=== PATIENT | female | born 1995 | race Caucasian/White ===

== ENCOUNTER → 2023-06-06 16:24 | Outpatient (REF) | payer OTHER, SELFPAY | LOC: RAD 16:24 | PROVIDERS: ATTENDING PHYSICIAN Student in an Organized Health Care Education/Training Program | DX: M25.512 Pain in left shoulder (principal) | CPT/HCPCS: 73030 ==

== ENCOUNTER → 2023-06-08 12:31 | Outpatient (REF) | payer OTHER, SELFPAY | LOC: RAD 12:31 | PROVIDERS: ATTENDING PHYSICIAN Family Medicine | DX: T14.8XXA Other injury of unspecified body region, initial encounter (principal) | CPT/HCPCS: 73110; 73130 ==

== ENCOUNTER 2023-06-08 13:19 | Emergency (ER) | payer OTHER, SELFPAY ==
[2023-06-08 13:20] VITALS: BP 139/93
[2023-06-08 13:23] LABS: Glucose - Point of Care 83 mg/dl (70-99)
[2023-06-08 15:25] VITALS: BP 117/55
[2023-06-08] MEDS: CLEOCIN 450 MG PO (15:40)
[2023-06-08] MEDS: MOTRIN 400 MG PO (15:40)
--- NOTE | 2023-06-08 17:55 | ED.GENMED ---
History of Present Illness
General
Chief Complaint: Fainting/Passed Out
Source: patient and family (Father)
Exam Limitations: none
Time Seen by Provider: 06/08/23 13:20
Nursing documentation reviewed up to this point in time: agreed with
Travel History
Have you had any contact with someone who has COVID-19?: No
Do you have any symptoms of coronavirus? Fever > 100 degrees, chills, cough, shortness of breath, sore throat, loss of taste or smell, muscle aches, or headache?: No
History of Present Illness
History of Present Illness:
27-year-old female with a past medical history of insulin-dependent diabetes presents to the emergency room with her father for evaluation after syncopal event; she really is requesting evaluation for right hand pain primarily. Patient reports that
she injured her right hand yesterday by slamming it in a car door. It has been swollen, bruised and tender since. She spoke with her primary physician who ordered her for an outpatient x-ray of the wrist and hand. She was here today for her x-ray
and while she was in the lobby she began to feel like her blood sugar was dropping low and she had a brief syncopal event. She did not fall or injure herself she says. Her father got her a soda and candy bar which she ate with resolution of her
symptoms. Accu-Chek after eating these things showed a glucose of 83. Patient admits that she used her mealtime insulin at around 11:30 AM today but that the x-ray took longer than expected and she did not get a chance to eat afterwards. She
denies any chest pain, shortness of breath, palpitations, headache, flank pain, abdominal pain, vaginal bleeding or any other complaints.
Past History
Past History
ED Past Medical History: IDDM, Psychiatric (Depression; tricyclic overdose September 2016), Other (Migraine headaches) and Other (Ovarian cysts, kidney stones)
ED Past Surgical History: None
Social History
Tobacco: Non-smoker
Alcohol: None
Personal: Single
Living: with family
Employment: Student
Family History
Family History: Other (Noncontributory)
Review of Systems
Review of Systems
All Other Systems: ROS reviewed and negative except as documented in HPI and ROS
Constitutional: Denies fever or chills
EENT: Denies sore throat
Respiratory: Denies cough or trouble breathing
Cardiac: Reports syncope; Denies chest pain, diaphoresis or palpitations
ABD/GI: Denies abdominal pain, nausea or vomiting
: Denies flank pain or bleeding
Musculoskeletal: Reports muscle pain (Right hand pain); Denies neck pain or back pain
Neurological: Denies dizzy, headache, weakness or numbness
Phy Exam
Physical Exam
Physical Exam:
General: Awake, alert, oriented x3; no acute distress
Head: Normocephalic, atraumatic
Eyes: Conjunctiva normal, EOMI, pupils equal round reactive to light bilaterally
Throat: Airway intact, handling secretions
Neck: Trachea midline, supple without meningismus
Lungs: Clear to auscultation bilaterally, no wheezing, rales, rhonchi
Heart: Regular rate and rhythm, no murmurs, gallops, or rubs�triage tachycardia resolved by my assessment
Abd: Soft, non distended, nontender
Neuro: Cranial nerves grossly intact, speech fluid, no gross motor or sensory deficits
Skin: no rash
Extremities: Patient has bruising/erythema of essentially the entire right thumb and thenar eminence as well as the dorsum of the hand along the first and second metatarsals; she has swelling in this area, tenderness to the touch; minor abrasion on
the dorsum of the thumb; she is able to make a fist and fully extend her fingers although she does have significant pain with making a fist; rest of extremities atraumatic
Scores
Heart Failure Risk
Heart Failure Risk Score: Not Applicable
Heart Score for Chest Pain Patients
STEMI patient?: Not applicable
Withdrawal Assessment of Alcohol
Withdrawal Assessment Completed?: Not applicable
Course
Orders/Labs/Results
Orders:
Orders
06/08/23 13:26
Electrocardiogram (*1) Urgent
Reason for Study: Chest Pain
EKG- Treatment ONCE
06/08/23 14:33
Clindamycin HCl [Cleocin] 450 mg PO NOW STA
06/08/23 14:37
Splints/Slings/Crut- Treatment ONCE
06/08/23 14:43
Ibuprofen [Motrin] 400 mg PO NOW STA
Vital Signs
Initial and Last Documented VS:
Initial Vital Signs
Temp Pulse Resp BP Pulse Ox
36.9 C 104 20 139/93 99
06/08/23 13:20 06/08/23 13:20 06/08/23 13:20 06/08/23 13:20 06/08/23 13:20
Last Documented Vital Signs
Temp Pulse Resp BP Pulse Ox
36.9 C 87 14 117/55 100
06/08/23 13:20 06/08/23 15:25 06/08/23 15:25 06/08/23 15:25 06/08/23 15:25
MDM/Problems Addressed
Differential Diagnosis Includes:
Syncope: Hypoglycemia, dysrhythmia, dehydration, orthostatic hypotension
Hand pain: Fracture, contusion, cellulitis
MDM/Problems Addressed:
27-year-old female with history of insulin-dependent diabetes presents after syncopal episode related to low blood sugar�took her insulin and did not eat because she was getting x-ray of her hand, felt her sugar dropped low and passed out. Drank a
soda and ate a candy bar with improvement. She feels fine now. She still has pain in her right hand. I reviewed outpatient x-rays which showed no fracture. She has significant pain and swelling, tenderness. Suspect likely bruising/contusion and
can likely be treated conservatively with splint for support, ice, rest, elevation. She does have an abrasion and the skin is warm and slightly erythematous and with her history of diabetes cellulitis a consideration although somewhat less likely
given the timeline of symptoms. I did cover with antibiotics in an abundance of caution. I discussed with hand surgery and they will follow-up with patient in the office. Patient very comfortable with this plan. Spoke about return precautions
all questions answered.
Chronic conditions affecting care:
Insulin-dependent diabetes
*Radiology
Radiology exam reviewed: preliminary read by ED provider and radiology read reviewed
*Pulse Oximetry
Patient hypoxic: no
*EKG
Interpreted by ED Provider?: Yes
Heart Rate: 90
Rate: normal
Rhythm: sinus
[place]: normal axis
Interval: normal interval
QRS Pattern: normal QRS
Ischemia: no ischemia
*Critical Care Note
Total Time (30-74mins, 75-104mins- exclusive of procedures): Not Applicable
Data Reviewed
Source: patient and family (Father)
ED Attending Note
-
Portions of this chart may have been created with voice recognition software.� Occasional wrong word or��sound alike� substitutions may have occurred due to the inherent limitations of voice recognition software.
Discharge Plan
Departure
Patient Disposition: Home (Routine Discharge)
Date of Disposition: 06/08/23
Time of Disposition: 14:37
Patient with high blood pressure during this ER visit?: No
Discharge Problem:
Hand pain, right, Hypoglycemia
Instructions: Contusion (DC), Cellulitis (Skin Infection), Adult (DC), Low Blood Sugar, Adult ED
Prescriptions:
New
clindamycin HCl 150 mg capsule
450 mg PO TID 7 Days Qty: 63 0RF
No Action
insulin lispro [Humalog U-100 Insulin] 100 UNIT/ML solution
0 unit SQ AC
Patient Comments:
sliding scale WITH MEALS
insulin glargine [Lantus Solostar U-100 Insulin] 300 UNITS/3 ML insulin pen
16 units SC HS
norethindrone ac-eth estradiol [04/16 (21)] 1 TAB tablet
1 tab PO HS
acetaminophen 325 MG tablet
650 mg PO Q6HPRN PRN (Reason: mild pain/ fever>100.5F) 0RF
citalopram 40 mg Tablet
40 mg PO HS
Xolair 75 mg/0.5 mL Syringe
150 mg SC Q4W
Patient Comments:
NOT POSITIVE ON DOSING
acetaminophen-codeine [acetaminophen-codeine] 300-30 mg tablet
1 - 2 tab PO Q4HPRN PRN (Reason: Mod-severe pain) Qty: 30 0RF
cefuroxime axetil [cefuroxime axetil] 500 mg tablet
500 mg PO BID 7 Days Qty: 14 0RF
Referrals:
Charity Duarte PA-C [Family Provider] -
Stephane España MD [Active] - Call in 1-3 days for appt
Activity Restrictions/Additional Instructions:
Thank you for visiting the Emergency Department at [facility].
1. Please schedule a follow up appointment as directed. Call first thing tomorrow morning to make an appointment.
2. If indicated, please take your medications as instructed and indicated on discharge paperwork.
3. If any of your symptoms do not improve, or persist, or become more severe within 6-12 hours, please return to the emergency department for further care.
4. Please return to the emergency department if you develop a headache, neck pain/stiffness, fever greater than 100.4F, chest pain, shortness of breath, persistent nausea, vomiting, slurred speech, difficulty walking, numbness/tingling, weakness,
signs of infection or any other symptoms that are worrisome to you.
Please call [phone] if you have any questions.
Interventions
Interventions:
*Risk Screen - Suicide Last Done: 06/08/23 13:20
*General Assessment Last Done: 06/08/23 13:20
*Neglect/Abuse Screening Last Done: 06/08/23 13:20
ED- Fall Risk Assessment Last Done: 06/08/23 15:25
*Nursing Disposition Last Done: 06/08/23 15:44
ED- Cardiac Assessment Last Done: 06/08/23 15:25
ED- Neurological Assessment Last Done: 06/08/23 15:25
Discharge Date and Time
Discharge Date/Time: 06/08/23 15:45
== END 2023-06-08 15:45 | disposition home or self-care (01) ==
LOC: EMR 13:19
PROVIDERS: EMERGENCY PHYSICIAN Emergency Medicine; FAMILY PHYSICIAN Student in an Organized Health Care Education/Training Program
DX: M79.641 Pain in right hand (principal); W23.0XXA Caught, crushed, jammed, or pinched between moving objects, initial encounter; E11.649 Type 2 diabetes mellitus with hypoglycemia without coma; Z79.4 Long term (current) use of insulin
CPT/HCPCS: 99283; 29125; 82962; 93005

== ENCOUNTER 2024-01-06 16:54 | Emergency (ER) | payer OTHER, SELFPAY ==
[2024-01-06 17:05] VITALS: BP 125/84
--- NOTE | 2024-01-06 17:12 | ED.GENMED ---
ED Provider Triage
<Juan C Gabriel PA-C - Last Filed: 01/06/24 17:14>
-
Patient seen by provider in Triage?: Seen in Triage
Attestation: A medical screening examination has been initiated by a qualified medical provider. Based on the assessment performed at this time, it has been determined that an emergent medical condition may exist and the patient has been informed
that further medical evaluation and possible additional diagnostic testing may be needed.
HPI: 28-year-old female presenting to the emergency department at request of primary care provider for right-sided abdominal pain. Patient states symptoms started few days ago and gradually worsening. Has had a fever with this. She does note
associated nausea and vomiting. Patient stated she was having pain in the right lower quadrant but during the exam with her primary she was having more pain in the right upper part of her abdomen. On my exam patient's pain was more located within
the right upper quadrant. We ultimately decided to check labs and based off the lab work order imaging off of that which patient feels comfortable with.
GENERAL: Alert , in no apparent distress
EYE: No visual abnormalities.
NECK: Trachea midline
ENT: No visible abnormalities.
LUNGS: No acute respiratory distress
NEUROLOGICAL: Alert and oriented
ABDOMEN: Tenderness to the right upper quadrant
SKIN: Skin intact. No visible changes.
MUSCULOSKELETAL: Moving extremities normally
PSYCH: Normal and appropriate interaction.
This is a medical evaluation conducted in person to initiate diagnostic evaluation and provide initial therapeutics. Please see further documentation by the treating clinician.
History of Present Illness
<Juan C Gabriel PA-C - Last Filed: 01/06/24 17:14>
General
Chief Complaint: Fever
Time Seen by Provider: 01/06/24 19:50
<Rafael Alves PA-C - Last Filed: 01/06/24 23:32>
History of Present Illness
History of Present Illness:
28-year-old female presents to the emergency department for evaluation of intermittent fever, right lower quadrant pain rating to the right back, and nausea/vomiting for the past 24 to 48 hours. Pain is subsided as of now. No diarrhea or dysuria.
No history of intra-abdominal surgery.
Past History
<Juan C Gabriel PA-C - Last Filed: 01/06/24 17:14>
Past History
ED Past Medical History: IDDM, Psychiatric (Depression; tricyclic overdose September 2016), Other (Migraine headaches) and Other (Ovarian cysts, kidney stones)
ED Past Surgical History: None
Social History
Tobacco: Non-smoker
Alcohol: None
Personal: Single
Living: with family
Employment: Student
Family History
Family History: Other (Noncontributory)
Review of Systems
<Rafael Alves PA-C - Last Filed: 01/06/24 23:32>
Review of Systems
Allergies reviewed?: Yes
All Other Systems: ROS reviewed and negative except as documented in HPI and ROS
Phy Exam
<Rafael Alves PA-C - Last Filed: 01/06/24 23:32>
Physical Exam
Physical Exam:
GEN: Well appearing, NAD, WDWN
HEENT: Oral mucosa moist, no scleral icterus
Cardiac: Regular rate
Lung: No respiratory distress, no tachypnea
Abdomen: Soft, nontender
MSK: No gross deformity or injuries
Skin: Good color, no pallor or jaundice, no rashes
Neuro: AO x3, moves all extremities freely
Psych: Calm, cooperative
Course
<Juan C Gabriel PA-C - Last Filed: 01/06/24 17:14>
Orders/Labs/Results
Orders:
Orders
01/06/24 17:12
Test Result ONCE
01/06/24 17:21
Complete Blood Count/With Diff Urgent
Comprehensive Metabolic Panel Urgent
HCG, Serum Qualitative Screen Urgent
Lipase Urgent
01/06/24 17:46
CT Abd/pel W Iv And Oral Contr Urgent
Comment:
Reason For Exam: right sided abd pain, fevers
Iohexol [Omnipaque] See Protocol PO NOW STA
01/06/24 20:38
Urinalysis Reflex To Culture Urgent
Date Specimen was Collected: 01/06/24
Time Specimen was Collected: 20:37
Abnormal Lab Results
01/06/24
17:21
MCHC 32.8 L g/dL
(33.0-37.0)
Glucose 58 L mg/dl
(70-99)
Total Bilirubin < 0.1 L mg/dl
(0.2-1.3)
01/06/24 17:21
01/06/24 17:21
Vital Signs
Initial and Last Documented VS:
Initial Vital Signs
Temp Pulse Resp BP Pulse Ox
98.4 F 95 16 125/84 97
01/06/24 17:05 01/06/24 17:05 01/06/24 17:05 01/06/24 17:05 01/06/24 17:05
Last Documented Vital Signs
Temp Pulse Resp BP Pulse Ox
98.3 F 83 16 117/77 100
01/06/24 18:53 01/06/24 18:53 01/06/24 18:53 01/06/24 18:53 01/06/24 18:53
<Rafael Alves PA-C - Last Filed: 01/06/24 23:32>
Orders/Labs/Results
Orders:
Orders
01/06/24 17:12
Test Result ONCE
01/06/24 17:21
Complete Blood Count/With Diff Urgent
Comprehensive Metabolic Panel Urgent
HCG, Serum Qualitative Screen Urgent
Lipase Urgent
01/06/24 17:46
CT Abd/pel W Iv And Oral Contr Urgent
Comment:
Reason For Exam: right sided abd pain, fevers
Iohexol [Omnipaque] See Protocol PO NOW STA
01/06/24 20:38
Urinalysis Reflex To Culture Urgent
Date Specimen was Collected: 01/06/24
Time Specimen was Collected: 20:37
Abnormal Lab Results
01/06/24
17:21
MCHC 32.8 L g/dL
(33.0-37.0)
Glucose 58 L mg/dl
(70-99)
Total Bilirubin < 0.1 L mg/dl
(0.2-1.3)
01/06/24 17:21
01/06/24 17:21
Vital Signs
Initial and Last Documented VS:
Initial Vital Signs
Temp Pulse Resp BP Pulse Ox
98.4 F 95 16 125/84 97
01/06/24 17:05 01/06/24 17:05 01/06/24 17:05 01/06/24 17:05 01/06/24 17:05
Last Documented Vital Signs
Temp Pulse Resp BP Pulse Ox
98.3 F 83 16 117/77 100
01/06/24 18:53 01/06/24 18:53 01/06/24 18:53 01/06/24 18:53 01/06/24 18:53
<Rafael Alves PA-C - Last Filed: 01/06/24 23:32>
MDM/Problems Addressed
MDM/Problems Addressed:
Workup was unremarkable, CT shows no evidence for acute pathology. Urinalysis is negative and labs are reassuring. Likely self-limited viral syndrome, discussed supportive care
<Rafael Alves PA-C - Last Filed: 01/06/24 23:32>
*Critical Care Note
Total Time (30-74mins, 75-104mins- exclusive of procedures): Not Applicable
ED Attending Note
<Juan C Gabriel PA-C - Last Filed: 01/06/24 17:14>
-
Portions of this chart may have been created with voice recognition software.� Occasional wrong word or��sound alike� substitutions may have occurred due to the inherent limitations of voice recognition software.
Discharge Plan
Departure
Patient Disposition: Home (Routine Discharge)
Date of Disposition: 01/06/24
Time of Disposition: 21:19
Patient with high blood pressure during this ER visit?: No
Discharge Problem:
Abdominal pain, Acute viral syndrome
Instructions: Viral Syndrome (DC)
Prescriptions:
No Action
insulin lispro [Humalog U-100 Insulin] 100 UNIT/ML solution
0 unit SQ AC
Patient Comments:
sliding scale WITH MEALS
insulin glargine [Lantus Solostar U-100 Insulin] 300 UNITS/3 ML insulin pen
16 units SC HS
norethindrone ac-eth estradiol [04/16 ()] 1 TAB tablet
1 tab PO HS
acetaminophen 325 MG tablet
650 mg PO Q6HPRN PRN (Reason: mild pain/ fever>100.5F) 0RF
citalopram 40 mg Tablet
40 mg PO HS
Xolair 75 mg/0.5 mL Syringe
150 mg SC Q4W
Patient Comments:
NOT POSITIVE ON DOSING
acetaminophen-codeine [acetaminophen-codeine] 300-30 mg tablet
1 - 2 tab PO Q4HPRN PRN (Reason: Mod-severe pain) Qty: 30 0RF
cefuroxime axetil [cefuroxime axetil] 500 mg tablet
500 mg PO BID 7 Days Qty: 14 0RF
clindamycin HCl 150 mg capsule
450 mg PO TID 7 Days Qty: 63 0RF
Referrals:
Garry Trammell, DO [Family Provider] -
Interventions
Interventions:
*Risk Screen - Suicide Last Done: 01/06/24 17:07
*General Assessment Last Done: 01/06/24 21:59
*Neglect/Abuse Screening Last Done: 01/06/24 17:07
ED- Fall Risk Assessment Last Done: 01/06/24 21:59
*ED COVID-19 Vaccine History Last Done: 01/06/24 17:08
*Nursing Disposition Last Done: 01/06/24 21:59
ED- Neurological Assessment Last Done: 01/06/24 18:54
ED-Skin Assessment Last Done: 01/06/24 18:54
Discharge Date and Time
Discharge Date/Time: 01/06/24 22:00
Print Language: ANGUILLAN
[2024-01-06 17:33] LABS: % Basophils 0.4 % (0-2); % Eosinophils 1.7 % (0-6); % Immature Granulocytes 0.1 % (0-0.5); % Lymphocytes 35.3 % (20.5-51.1); % Monocytes 6.8 % (1.7-9.3); % Neutrophils 55.7 % (42.2-75.2); Absolute Eosinophils 0.1 10^3/uL (0-0.7); Absolute Lymphocytes 2.5 10^3/uL (1.2-3.4); Absolute Monocytes 0.5 10^3/uL (0.1-0.6); Hemoglobin 12.8 g/dL (12.0-16.0); Mean Corp Hgb Conc. 32.8 g/dL (33.0-37.0); Mean Corpuscular Hgb 27.8 pg (27.0-31.0); Mean Corpuscular Volume 84.6 fL (81.0-99.0); Nucleated Red Blood Cells % 0 %; Platelet Count 264 10^3/uL (130-400); Red Blood Cell Count 4.61 10^6/uL (4.20-5.40); Red Cell Dist. Width 13.5 % (11.5-14.5); White Blood Cell Count 7.2 10^3/uL (4.8-10.8)
[2024-01-06 17:40] LABS: HCG, Serum Qualitative Screen Negative
[2024-01-06 17:45] LABS: ALT (SGPT) 15 U/L (0-35); AST (SGOT) 20 U/L (14-36); Albumin 4.4 g/dl (3.5-5.0); Alkaline Phosphatase 47 U/L (38-126); Blood Urea Nitrogen 9 mg/dl (7-17); Calcium 9.9 mg/dl (8.4-10.2); Carbon Dioxide 28 mmol/L (22-30); Chloride 102 mmol/L (98-107); Glucose 58 mg/dl (70-99); Lipase 70 U/L (23-300); Potassium 3.9 mmol/L (3.5-5.1); Sodium 141 mmol/L (135-145); Total Bilirubin < 0.1 mg/dl (0.2-1.3); Total Protein 7.1 g/dl (6.3-8.2); eGFR > 60.00
[2024-01-06] MEDS: OMNIPAQUE 50 ML PO (17:56)
[2024-01-06 18:53] VITALS: BP 117/77
[2024-01-06 20:49] LABS: Urine Albumin Negative (Neg - Trace); Urine Bilirubin Negative (Negative); Urine Character Clear (Clear); Urine Color Straw; Urine Glucose Negative (Negative); Urine Ketone Negative (Negative); Urine Leukocyte Negative (Negative); Urine Nitrite Negative (Negative); Urine Occult Blood Negative (Negative); Urine Urobilinogen Negative (Neg - 1+)
== END 2024-01-06 22:00 | disposition home or self-care (01) ==
LOC: EMR 16:54
PROVIDERS: Physician Assistant; Physician Assistant Medical; EMERGENCY PHYSICIAN Student in an Organized Health Care Education/Training Program; FAMILY PHYSICIAN Family Medicine
DX: B34.9 Viral infection, unspecified (principal); R10.31 Right lower quadrant pain; E11.9 Type 2 diabetes mellitus without complications; F32.A Depression, unspecified
CPT/HCPCS: 99284; 74177; 80053; 81003; 83690; 84703; 85025; Q9967

== ENCOUNTER 2024-04-10 13:15 | Emergency (ER) | payer OTHER, SELFPAY ==
[2024-04-10 13:21] VITALS: BP 130/90
--- NOTE | 2024-04-10 13:22 | ED.GENMED ---
ED Provider Triage
<Claudia Louise PA-C - Last Filed: 04/10/24 13:30>
-
Patient seen by provider in Triage?: Seen in Triage
pt is a 28 y/o F iddm, migraines
headache gradual since yesterday pressure all over
today when bending over, coughing/sneezing she feels sudden severe pain tofday starting aroud 1230 pm
vision changes are floaters/flashing lighths
but pain is posterior head and neck
no vomiting, fevr, chills, confusion, weakness
mom has h/o chiari maformation
possibel mild aneurysm
Well-appearing, stable vitals, intact nonfocal neuroexam
GCS 15
A medical screening examination has been initiated by a qualified medical provider. Based on the assessment performed at this time, it has been determined that an emergent medical condition may exist and the patient has been informed that further
medical evaluation and possible additional diagnostic testing may be needed.
HPI: This is a medical evaluation conducted in person to initiate diagnostic evaluation and provide initial therapeutics. Please see further documentation by the treating clinician.
GENERAL: Alert , in no apparent distress
ENT: No visible abnormalities
LUNGS: No acute respiratory distress
NEUROLOGICAL: Alert and oriented
SKIN: Skin intact. No visible changes.
MUSCULOSKELETAL: Moving extremities normally
PSYCH: Normal and appropriate interaction.
labs, cta, will need migraie meds
History of Present Illness
<Claudia Louise PA-C - Last Filed: 04/10/24 13:30>
General
Chief Complaint: Headache
Time Seen by Provider: 04/10/24 14:52
<Gold Grimaldo DO - Last Filed: 04/10/24 16:58>
History of Present Illness
History of Present Illness:
Agree with HPI
Past History
<Claudia Louise PA-C - Last Filed: 04/10/24 13:30>
Past History
ED Past Medical History: IDDM, Psychiatric (Depression; tricyclic overdose September 2016), Other (Migraine headaches) and Other (Ovarian cysts, kidney stones)
ED Past Surgical History: None
Social History
Tobacco: Non-smoker
Alcohol: None
Personal: Single
Living: with family
Employment: Student
Family History
Family History: Other (Noncontributory)
Phy Exam
<Gold Grimaldo DO - Last Filed: 04/10/24 16:58>
Physical Exam
Physical Exam:
Physical Exam
General: no apparent distress, not acutely ill
Neck: supple. no meningeal signs. normal posterior pharynx
Heart: s1/s2 regular rate and rhythm, no murmur. equal radial
pulses.
HEENT: Pupils equal round reactive to light, EOMI
Lungs: no acute respiratory distress. clear bilaterally
Abdomen: normal bowel sounds. not tender. no CVAT
Neuro: alert and oriented. no focal neurological deficits cranial nerves II through XII intact
Skin: no rash
Psychiatric: well kept. interactive and cooperative
Extremities: no edema. no calf tenderness. negative homans. good distal pulses
Course
<Claudia Louise PA-C - Last Filed: 04/10/24 13:30>
Orders/Labs/Results
Orders:
Orders
04/10/24 13:24
CT Head & Neck Angio W/wo IV Urgent
Comment:
Reason For Exam: migaine, severe with sudden vision changes/thunder
Test Result ONCE
04/10/24 13:32
COVID-19 Antigen Urgent
Source: Nasal Swab
Complete Blood Count/With Diff Urgent
Comprehensive Metabolic Panel Urgent
HCG, Serum Qualitative Screen Urgent
Influenza A+B Rapid Molecular Urgent
TIANA Source: Nasal Swab
Specimen Description:
04/10/24 15:05
Diphenhydramine [Benadryl] 25 mg IV NOW STA
Metoclopramide [Reglan] 10 mg IV NOW STA
Abnormal Lab Results
04/10/24
13:32
MCHC 32.7 L g/dL
(33.0-37.0)
Glucose 190 H mg/dl
(70-99)
04/10/24 13:32
04/10/24 13:32
Vital Signs
Initial and Last Documented VS:
Initial Vital Signs
Temp Pulse Resp BP Pulse Ox
97.6 F 91 18 130/90 93
04/10/24 13:21 04/10/24 13:21 04/10/24 13:21 04/10/24 13:21 04/10/24 13:21
Last Documented Vital Signs
Temp Pulse Resp BP Pulse Ox
97.6 F 78 18 115/74 99
04/10/24 13:21 04/10/24 16:08 04/10/24 16:08 04/10/24 16:08 04/10/24 16:08
<Gold Grimaldo, DO - Last Filed: 04/10/24 16:58>
Orders/Labs/Results
Orders:
Orders
04/10/24 13:24
CT Head & Neck Angio W/wo IV Urgent
Comment:
Reason For Exam: migaine, severe with sudden vision changes/thunder
Test Result ONCE
04/10/24 13:32
COVID-19 Antigen Urgent
Source: Nasal Swab
Complete Blood Count/With Diff Urgent
Comprehensive Metabolic Panel Urgent
HCG, Serum Qualitative Screen Urgent
Influenza A+B Rapid Molecular Urgent
TIANA Source: Nasal Swab
Specimen Description:
04/10/24 15:05
Diphenhydramine [Benadryl] 25 mg IV NOW STA
Metoclopramide [Reglan] 10 mg IV NOW STA
Abnormal Lab Results
04/10/24
13:32
MCHC 32.7 L g/dL
(33.0-37.0)
Glucose 190 H mg/dl
(70-99)
04/10/24 13:32
04/10/24 13:32
Vital Signs
Initial and Last Documented VS:
Initial Vital Signs
Temp Pulse Resp BP Pulse Ox
97.6 F 91 18 130/90 93
04/10/24 13:21 04/10/24 13:21 04/10/24 13:21 04/10/24 13:21 04/10/24 13:21
Last Documented Vital Signs
Temp Pulse Resp BP Pulse Ox
97.6 F 78 18 115/74 99
04/10/24 13:21 04/10/24 16:08 04/10/24 16:08 04/10/24 16:08 04/10/24 16:08
<Gold Grimaldo, - Last Filed: 04/10/24 16:58>
MDM/Problems Addressed
Differential Diagnosis Includes:
Vertebral/carotid artery dissection, migraine, intracranial hemorrhage
MDM/Problems Addressed:
28-year-old female with headache, likely migraine. Improved after Reglan and Benadryl. CTA head and neck no acute findings. Stable for discharge. Do not suspect vertebral artery or intracranial hemorrhage.
Chronic conditions affecting care: DM
<Gold Grimaldo, DO - Last Filed: 04/10/24 16:58>
*Radiology
Radiology exam reviewed: radiology read reviewed (CTA head and neck no acute findings)
*Pulse Oximetry
Patient hypoxic: no
*Critical Care Note
Total Time (30-74mins, 75-104mins- exclusive of procedures): Not Applicable
<Gold Grimaldo, DO - Last Filed: 04/10/24 16:58>
Patient Management
Social determinants of health affecting care: Living situation and Strong social support
Escalation/DeEscalation of care consider admission/obs:
Admit not indicated
ED Attending Note
<Claudia Louise PA-C - Last Filed: 04/10/24 13:30>
-
Portions of this chart may have been created with voice recognition software.� Occasional wrong word or��sound alike� substitutions may have occurred due to the inherent limitations of voice recognition software.
Discharge Plan
Departure
Patient Disposition: Home (Routine Discharge)
Date of Disposition: 04/10/24
Time of Disposition: 16:54
Patient with high blood pressure during this ER visit?: No
Condition: Good
Discharge Problem:
Headache
Instructions: Headache, Adult (DC)
Prescriptions:
No Action
insulin lispro [Humalog U-100 Insulin] 100 UNIT/ML solution
0 unit SQ AC
Patient Comments:
sliding scale WITH MEALS
insulin glargine [Lantus Solostar U-100 Insulin] 300 UNITS/3 ML insulin pen
16 units SC HS
norethindrone ac-eth estradiol [04/16 ()] 1 TAB tablet
1 tab PO HS
acetaminophen 325 MG tablet
650 mg PO Q6HPRN PRN (Reason: mild pain/ fever>100.5F) 0RF
citalopram 40 mg Tablet
40 mg PO HS
Xolair 75 mg/0.5 mL Syringe
150 mg SC Q4W
Patient Comments:
NOT POSITIVE ON DOSING
acetaminophen-codeine [acetaminophen-codeine] 300-30 mg tablet
1 - 2 tab PO Q4HPRN PRN (Reason: Mod-severe pain) Qty: 30 0RF
cefuroxime axetil [cefuroxime axetil] 500 mg tablet
500 mg PO BID 7 Days Qty: 14 0RF
clindamycin HCl 150 mg capsule
450 mg PO TID 7 Days Qty: 63 0RF
Referrals:
Charity Duarte PA-C [Family Provider] - Call in 1-3 days for appt
Interventions
Interventions:
*Risk Screen - Suicide Last Done: 04/10/24 13:21
*General Assessment Last Done: 04/10/24 13:21
*Neglect/Abuse Screening Last Done: 04/10/24 13:21
ED- Neurological Assessment Last Done: 04/10/24 13:53
Discharge Date and Time
Print Language: CYMRO
[2024-04-10 13:47] LABS: % Basophils 0.6 % (0-2); % Eosinophils 1.1 % (0-6); % Immature Granulocytes 0.2 % (0-0.5); % Lymphocytes 28.3 % (20.5-51.1); % Monocytes 5.4 % (1.7-9.3); % Neutrophils 64.4 % (42.2-75.2); Absolute Basophils 0.1 10^3/uL (0-0.2); Absolute Eosinophils 0.1 10^3/uL (0-0.7); Absolute Lymphocytes 2.5 10^3/uL (1.2-3.4); Absolute Monocytes 0.5 10^3/uL (0.1-0.6); Absolute Neutrophils 5.8 10^3/uL (1.4-6.5); Hematocrit 40.4 % (37.0-47.0); Hemoglobin 13.2 g/dL (12.0-16.0); Mean Corp Hgb Conc. 32.7 g/dL (33.0-37.0); Mean Corpuscular Volume 82.6 fL (81.0-99.0); Mean Platelet Volume 9.4 fL (7.4-10.4); Nucleated Red Blood Cells % 0 %; Platelet Count 321 10^3/uL (130-400); Red Blood Cell Count 4.89 10^6/uL (4.20-5.40); Red Cell Dist. Width 14.1 % (11.5-14.5)
[2024-04-10 13:53] LABS: HCG, Serum Qualitative Screen Negative
[2024-04-10 13:57] LABS: ALT (SGPT) 16 U/L (0-35); AST (SGOT) 20 U/L (14-36); Albumin 4.4 g/dl (3.5-5.0); Alkaline Phosphatase 77 U/L (38-126); Blood Urea Nitrogen 8 mg/dl (7-17); Calcium 9.5 mg/dl (8.4-10.2); Carbon Dioxide 29 mmol/L (22-30); Chloride 98 mmol/L (98-107); Glucose 190 mg/dl (70-99); Potassium 4.1 mmol/L (3.5-5.1); Sodium 136 mmol/L (135-145); Total Protein 7.1 g/dl (6.3-8.2); eGFR > 60.00
[2024-04-10 14:02] LABS: COVID-19 Antigen Negative (Negative)
[2024-04-10 14:34] LABS: Total Bilirubin 0.5 mg/dl (0.2-1.3)
[2024-04-10] MEDS: BENADRYL 25 MG IV (15:39)
[2024-04-10] MEDS: REGLAN 10 MG IV (15:39)
[2024-04-10 16:08] VITALS: BP 115/74
== END 2024-04-10 17:25 | disposition home or self-care (01) ==
LOC: EMR 13:15
PROVIDERS: Physician Assistant; EMERGENCY PHYSICIAN Emergency Medicine; FAMILY PHYSICIAN Student in an Organized Health Care Education/Training Program
DX: R51.9 Headache, unspecified (principal); E11.9 Type 2 diabetes mellitus without complications; F32.A Depression, unspecified; Z87.442 Personal history of urinary calculi
CPT/HCPCS: 99284; 96374; 96375; 70496; 70498; 80053; 84703; 85025; 87502; 87811; Q9967

== ENCOUNTER 2025-02-04 11:36 | Emergency (ER) | payer OTHER, SELFPAY ==
[2025-02-04 11:41] VITALS: BP 128/92
--- NOTE | 2025-02-04 12:19 | ED.GENMED ---
History of Present Illness
General
Chief Complaint: Fever
Time Seen by Provider: 02/04/25 12:13
History of Present Illness
History of Present Illness:
29-year-old female with history of type 1 diabetes presents to the emergency department for evaluation of fever associated with lower abdominal and low back pain beginning this morning. Pain is rated 7 out of 10. No nausea, vomiting, diarrhea,
lower urinary tract voiding symptoms or URI type symptoms. No ill contacts. No intra-abdominal surgical history. Currently on her menses. Glucose has been well-controlled recently per patient
Past History
Past History
ED Past Medical History: IDDM, Psychiatric (Depression; tricyclic overdose September 2016), Other (Migraine headaches) and Other (Ovarian cysts, kidney stones)
ED Past Surgical History: None
Social History
Tobacco: Non-smoker
Alcohol: None
Personal: Single
Living: with family
Employment: Student
Family History
Family History: Other (Noncontributory)
Review of Systems
Review of Systems
Allergies reviewed?: Yes
All Other Systems: ROS reviewed and negative except as documented in HPI and ROS
Phy Exam
Physical Exam
Physical Exam:
GEN: Well appearing, NAD, WDWN
HEENT: Oral mucosa moist, no scleral icterus
Cardiac: Regular rate and rhythm, no murmurs
Lung: No respiratory distress, no tachypnea
Abdomen: Soft, diffuse lower abdominal tenderness maximized in the suprapubic space, no rigidity or peritoneal signs
MSK: No gross deformity or injuries
Skin: Good color, no pallor or jaundice, no rashes
Neuro: AO x3, moves all extremities freely
Psych: Calm, cooperative
Course
Orders/Labs/Results
Orders:
Orders
02/04/25 12:18
Ketorolac [Toradol] 15 mg IV NOW STA
Test Result ONCE
02/04/25 12:28
Complete Blood Count/With Diff Urgent
Comprehensive Metabolic Panel Urgent
HCG, Serum Qualitative Screen Urgent
02/04/25 12:43
Urinalysis Reflex To Culture Urgent
Date Specimen was Collected: 02/04/25
Time Specimen was Collected: 12:36
02/04/25 14:17
US Abdomen - Appendix Only Urgent
Reason For Exam: pelvic pain, fever
US Pelvis W Transvag Combined Urgent
Reason For Exam: suprapubic pain, fever
Abnormal Lab Results
02/04/25
12:28
Sodium 133 L mmol/L
(135-145)
Glucose 229 H mg/dl
(70-99)
02/04/25 12:28
02/04/25 12:28
Vital Signs
Initial and Last Documented VS:
Initial Vital Signs
Temp Pulse Resp BP Pulse Ox
99.1 F 76 20 128/92 97
02/04/25 11:41 02/04/25 11:41 02/04/25 11:41 02/04/25 11:41 02/04/25 11:41
Last Documented Vital Signs
Temp Pulse Resp BP Pulse Ox
99.1 F 72 18 104/68 99
02/04/25 11:41 02/04/25 14:05 02/04/25 14:05 02/04/25 14:05 02/04/25 14:05
MDM/Problems Addressed
MDM/Problems Addressed:
Unclear etiology to patient's fever, certainly could be a self-limited viral syndrome. Most notably her labs are reassuring and her ultrasound shows no evidence for appendicitis or pelvic pathology. Urinalysis is bland. Discussed supportive care
*Pulse Oximetry
SaO2: 97
Oxygen Mode of Delivery: Room air
Patient hypoxic: no
*Critical Care Note
Total Time (30-74mins, 75-104mins- exclusive of procedures): Not Applicable
ED Attending Note
-
Portions of this chart may have been created with voice recognition software.� Occasional wrong word or��sound alike� substitutions may have occurred due to the inherent limitations of voice recognition software.
Discharge Plan
Departure
Patient Disposition: Home (Routine Discharge)
Date of Disposition: 02/04/25
Time of Disposition: 16:53
Patient with high blood pressure during this ER visit?: No
Discharge Problem:
Fever
Instructions: Fever, Adult (DC)
Prescriptions:
No Action
insulin lispro [Humalog U-100 Insulin] 100 UNIT/ML solution
0 unit SQ AC
Patient Comments:
sliding scale WITH MEALS
insulin glargine [Lantus Solostar U-100 Insulin] 300 UNITS/3 ML insulin pen
16 units SC HS
norethindrone ac-eth estradiol [June 04/16 ()] 1 TAB tablet
1 tab PO HS
acetaminophen 325 MG tablet
650 mg PO Q6HPRN PRN (Reason: mild pain/ fever>100.5F) 0RF
citalopram 40 mg Tablet
40 mg PO HS
Xolair 75 mg/0.5 mL Syringe
150 mg SC Q4W
Patient Comments:
NOT POSITIVE ON DOSING
acetaminophen-codeine [acetaminophen-codeine] 300-30 mg tablet
1 - 2 tab PO Q4HPRN PRN (Reason: Mod-severe pain) Qty: 30 0RF
cefuroxime axetil [cefuroxime axetil] 500 mg tablet
500 mg PO BID 7 Days Qty: 14 0RF
clindamycin HCl 150 mg capsule
450 mg PO TID 7 Days Qty: 63 0RF
doxycycline hyclate 100 mg capsule
100 mg PO BID Qty: 14 0RF
Interventions
Interventions:
*Risk Screen - Suicide Last Done: 02/04/25 11:41
*General Assessment Last Done: 02/04/25 11:41
*Neglect/Abuse Screening Last Done: 02/04/25 11:41
*ED- Fall Risk Assessment Last Done: 02/04/25 12:30
*ED COVID-19 Vaccine History Last Done: 02/04/25 12:30
*ED Influenza Vaccine History Last Done: 02/04/25 12:30
*Nursing Disposition Last Done: 02/04/25 12:30
ED- Neurological Assessment Last Done: 02/04/25 12:35
ED-Skin Assessment Last Done: 02/04/25 12:35
Discharge Date and Time
Discharge Date/Time: 02/04/25 17:08
Print Language: PUERTO RICAN
[2025-02-04] MEDS: TORADOL 15 MG IV (12:33)
[2025-02-04 12:47] LABS: Hematocrit 37.6 % (37.0-47.0); Hemoglobin 12.5 g/dL (12.0-16.0); Mean Corp Hgb Conc. 33.2 g/dL (33.0-37.0); Mean Corpuscular Volume 85.1 fL (81.0-99.0); Nucleated Red Blood Cells % 0 %; Platelet Count 284 10^3/uL (130-400); Red Cell Dist. Width 13.9 % (11.5-14.5)
[2025-02-04 12:53] LABS: HCG, Serum Qualitative Screen Negative
[2025-02-04 12:57] LABS: ALT (SGPT) 15 U/L (0-35); AST (SGOT) 19 U/L (14-36); Albumin 4.2 g/dl (3.5-5.0); Alkaline Phosphatase 55 U/L (38-126); Blood Urea Nitrogen 9 mg/dl (7-17); Calcium 9.2 mg/dl (8.4-10.2); Carbon Dioxide 28 mmol/L (22-30); Chloride 100 mmol/L (98-107); Glucose 229 mg/dl (70-99); Potassium 4.0 mmol/L (3.5-5.1); Sodium 133 mmol/L (135-145); Total Protein 7.2 g/dl (6.3-8.2); eGFR > 60.00
[2025-02-04 13:46] LABS: Urine Character Clear (Clear)
[2025-02-04 14:05] VITALS: BP 104/68
== END 2025-02-04 17:08 | disposition home or self-care (01) ==
LOC: EMR 11:36
PROVIDERS: Physician Assistant; EMERGENCY PHYSICIAN Emergency Medicine; FAMILY PHYSICIAN Physician Assistant Medical
DX: R50.9 Fever, unspecified (principal); E10.9 Type 1 diabetes mellitus without complications; F32.A Depression, unspecified; Z87.442 Personal history of urinary calculi
CPT/HCPCS: 99284; 96374; 76705; 76830; 76856; 80053; 81003; 84703; 85025